=== PATIENT | female | born 1980 | race Caucasian/White ===

== ENCOUNTER 2019-11-25 07:23 | Emergency (ER) | payer BC ==
[2019-11-25 07:33] VITALS: BMI 20.7
[2019-11-25] MEDS ORDERED: ACETAMINOPHEN 1000 MG/100 ML VIAL (NON FORMULARY) IVPB ONE (07:41)
--- NOTE | 2019-11-25 07:45 | PDOC ---
Attending Attestation - Resident Resident Name: AndrewwinstonMichael - ED Attending Attestation I have performed the following: I have examined & evaluated the patient, The case was reviewed & discussed with the resident, I agree w/resident's findings & plan, Exceptions are as noted - HPI HPI: 11/25/19 07:52 39y F hx of hypothyroidism presents with complaint of chest pain for the past several days. The patient notes the pain was gradual onset, located under her left breast and is aching pressure-like in nature. Today as she was going to work she noticed that the pain had worsened and seems to worsen when she takes deep breath.the pain seems to radiate to the back. The patient denies any fever, chills, cough, dyspnea on exertion, shortness of breath, leg swelling, orthopnea. Patient denies any new recent exercises, injuries. She has never had similar pain in the past. Family history: Grandparents had cardiac disease at early age Social hx: social etoh, no smoking/recreatiaonl drug use - Physicial Exam PE: 11/25/19 07:57 Physicial Exam: GENERAL: The patient is awake, alert, and fully oriented, Nontoxic - in no acute distress. HEAD: Normocephalic, atraumatic. EYES: extraocular movements intact, sclera anicteric, conjunctiva clear. ENT: Normal voice, Moist mucous membranes. NECK: Normal range of motion, supple CHEST: No rashes to affected area, mild tenderness of L anterior chest LUNGS: Breath sounds equal, clear to auscultation bilaterally. No wheezes, no rhonchi, no rales. HEART: Regular rate and rhythm, normal S1 and S2 without murmur, rub or gallop. ABDOMEN: Soft, nontender, No guarding, no rebound. No CVA tenderness EXTREMITIES: Normal range of motion, no edema. Neg Homans NEUROLOGICAL: No facial assymetry, Normal speech, PSYCH: Normal mood, normal affect. SKIN: Warm, Dry, normal turgor, - Medical Decision Making 11/25/19 07:57 ddx includes but is not limited to: msk pain, pancreatitis, ptx, consider pna, low suspicion for acs will give tylenol for pain will ck ekg, basic labs, lipase will reasesss 11/25/19 12:57 Pt feeling improved will dc with outpatient fu returns precautions were dsicussed Heart Score/ECG Review - ECG Impressions Comment:: 11/25/19 07:57 Twelve-lead EKG was performed and reviewed by me. There is normal sinus rhythm with a normal rate. Rate of 75 Normal axis No normal R wave progression No ST wave changes suggestive of acute ischemia No prior EKG for comparison Discharge - Discharge Information Problems reviewed: Yes Clinical Impression/Diagnosis: Chest pain Qualifiers: Chest pain type: unspecified Qualified Code(s): R07.9 - Chest pain, unspecified Condition: Stable Disposition: HOME - Admission No - Follow up/Referral Referrals: Franco Quezada [Primary Care Provider] - - Patient Discharge Instructions Patient Printed Discharge Instructions: DI for Atypical Chest Pain Additional Instructions: Today you were seen for chest pain. Your labs are all normal. Your X-ray shows no broken bones or pneumonia. You are not having a heart attack or have any other disease that needs emergency treatment. Options for why you are having this pain include: 1. you have a chest muscle injury or bruising, and this can be treated with rest and Tylenol or Motrin as needed 2. you have a cartilage irritation called costochondritis, which can be treated with rest and Tylenol or Motrin as needed 3. you are about to get shingles, which looks like a lot of painful blisters in that region, and if this happens, please see a doctor for further care At home, see your regular doctor for further care. Take Tylenol or Motrin as needed for pain. If you experience new, different chest pain, difficulty breathing, vomiting, fever, or any other new or concerning symptoms, please return to the emergency room. Thanks again for being a teacher! - Post Discharge Activity Work/Back to School Note: Back to Work
[2019-11-25] MEDS ORDERED: ACETAMINOPHEN INJECTION 100 ML IVPB ONE (07:52)
--- NOTE | 2019-11-25 07:53 | PDOC ---
History of Present Illness - General Chief Complaint: Chest Pain Stated Complaint: CHEST PAIN SOB Time Seen by Provider: 11/25/19 07:44 History Source: Patient Exam Limitations: No Limitations - History of Present Illness Initial Comments: 11/25/19 07:52 Keely Smith is a 39F with PMH hypothyroidism presenting with left chest pain. Has had 3 days of dull rib pain below her left breast, no recent injury. Today has sharp pain under left breast, worse with inspiration, deeper, with deep breathing will jump from sudden pain. Denies F/C, N/V, abd pain, urinary sx, dizziness, VICTOR, coughing. No thoracic surgery or injury. No cardiac history. No recent travel, sick contacts, history of clots, DVT, or hormone use. 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 Had chickenpox as a child. No obvious rash or bruise to chest. Denies alcohol/drugs/tobacco use. PSH . Meds: Synthroid Past History - Medical History Allergies/Adverse Reactions: Allergies Allergy/AdvReac Type Severity Reaction Status Date / Time No Known Allergies Allergy Verified 11/25/19 07:27 COPD: No Seizures: Yes (hypo) - Reproductive History Is Patient Now?: No - Psycho-Social/Smoking History Smoking History: Never smoked Have you smoked in the past 12 months: No - Substance Abuse Hx (Audit-C & DAST Scrn) How often the patient has a drink containing alcohol: Monthly or less Number of drinks the patient has on a typical day: 1 or 2 How often the patient has six or more drinks on one occasion: Never Score: In Men: 4 or > Positive; In Women: 3 or > Positive: 1 Screen Result (Pos requires Nsg. Audit-10AR): Negative In the last yr the pt used illegal drug/Rx for NonMed reason: No Score: Yes response is considered Positive: 0 Screen Result (Positive result requires Nsg. DAST-10): Negative Review of Systems - Review of Systems Able to Perform ROS?: Yes Constitutional: No: Symptoms Reported HEENTM: No: Symptoms Reported Respiratory: Yes: Shortness of Breath. No: Cough, Orthopnea Cardiac (ROS): Yes: Chest Pain ABD/GI: No: Symptoms Reported : No: Symptoms Reported Musculoskeletal: No: Symptoms Reported Integumentary: No: Symptoms Reported Neurological: No: Symptoms reported Endocrine: No: Symptoms Reported Hematologic/Lymphatic: No: Symptoms Reported All Other Systems: Reviewed and Negative *Physical Exam - Vital Signs Last Vital Signs Temp Pulse Resp BP Pulse Ox 98 F 88 22 H 119/70 100 11/25/19 07:27 11/25/19 07:27 11/25/19 07:27 11/25/19 07:27 11/25/19 07:27 - Physical Exam General Appearance: Yes: Nourished, Appropriately Dressed, Thin, Other (resting in bed in NAD, jumps and sharply inhales with deel inhalation). No: Apparent Distress HEENT: positive: EOMI, ISH, Normal Voice, Symmetrical, Pharynx Normal, Hearing Grossly Normal. negative: Scleral Icterus (R), Scleral Icterus (L), Pharyngeal Erythema, Tonsillar Exudate, Tonsillar Erythema Neck: positive: Trachea midline, Normal Thyroid, Supple. negative: Tender, Rigid, Carotid bruit, Lymphadenopathy (R), Lymphadenopathy (L), Tender lateral, Tender midline Respiratory/Chest: positive: Lungs Clear, Normal Breath Sounds, Respiratory Distress (only with deep breathing), Other (chest non-tender). negative: Chest Tender, Accessory Muscle Use, Labored Respiration, Decreased Breath Sounds, Paradoxal Breathing, Crackles, Rales, Rhonchi, Stridor, Wheezing Cardiovascular: positive: Regular Rhythm, Regular Rate. negative: Murmur, Tachycardia Gastrointestinal/Abdominal: positive: Normal Bowel Sounds, Flat, Soft. negative : Tender, Organomegaly, Pulsatile Mass, Guarding, Rebound, Hernia, Hepatomegaly Musculoskeletal: positive: Normal Inspection. negative: CVA Tenderness, Decreased Range of Motion, Vertebral Tenderness Extremity: positive: Normal Capillary Refill, Normal Inspection, Normal Range of Motion, Pelvis Stable. negative: Tender Integumentary: positive: Normal Color, Dry, Warm, Other (scattered erythematous macules to left chest under breast, no bruising) Neurologic: positive: Fully Oriented, Alert, Normal Mood/Affect, Normal Response ED Treatment Course - LABORATORY CBC & Chemistry Diagram: 11/25/19 07:47 11/25/19 07:47 Medical Decision Making - Medical Decision Making 11/25/19 07:53 Patient presents with new onset left chest pain under left breast affecting breathing, no cardiac or pulmonary history, non-tender. VSS. By PERC criteria low suspicion of PE. No cardiac risk factors. Ddx includes PNA, ACS, costochondritis, rib fracture, possibly early onset shingles given PMH chickenpox. CMP/CBC/CP/lipase/ test/ECG/CXR ECG NSR with HR 75, QTc 464, no MATY/D, nonspecific TWI to V2. 11/25/19 08:52 Labs reviewed and unremarkable for pathology. 11/25/19 09:34 CXR unremarkable. No acute pathology noted, possible costochondritis vs. shingles vs. muscle injury. No emergent need for treatment. Can d/c home with PMD f/u. Discharge - Discharge Information Problems reviewed: Yes Clinical Impression/Diagnosis: Chest pain Qualifiers: Chest pain type: unspecified Qualified Code(s): R07.9 - Chest pain, unspecified Condition: Stable Disposition: HOME - Follow up/Referral Referrals: Franco Quezada [Primary Care Provider] - - Patient Discharge Instructions Patient Printed Discharge Instructions: DI for Atypical Chest Pain Additional Instructions: Today you were seen for chest pain. Your labs are all normal. Your X-ray shows no broken bones or pneumonia. You are not having a heart attack or have any other disease that needs emergency treatment. Options for why you are having this pain include: 1. you have a chest muscle injury or bruising, and this can be treated with rest and Tylenol or Motrin as needed 2. you have a cartilage irritation called costochondritis, which can be treated with rest and Tylenol or Motrin as needed 3. you are about to get shingles, which looks like a lot of painful blisters in that region, and if this happens, please see a doctor for further care At home, see your regular doctor for further care. Take Tylenol or Motrin as needed for pain. If you experience new, different chest pain, difficulty breathing, vomiting, fever, or any other new or concerning symptoms, please return to the emergency room. Thanks again for being a teacher! - Post Discharge Activity Work/Back to School Note: Back to Work
[2019-11-25 08:14] LABS: BASO % 1.3 % (0-2.0); EOS % 3.7 % (0-4.5); HEMATOCRIT 39.6 % (32.4-45.2); HEMOGLOBIN 13.4 GM/dL (10.7-15.3); LYMPH % 22.6 % (8-40); MCH 30.5 pg (25.7-33.7); MCHC 33.9 g/dl (32.0-36.0); MEAN CELL VOLUME 89.9 fl (80-96); MEAN PLT VOLUME 8.5 fl (7.5-11.1); MONO % 9.5 % (3.8-10.2); NEUT % 62.9 % (42.8-82.8); PLATELET COUNT 163 K/MM3 (134-434); RBC 4.41 M/mm3 (3.60-5.2); RDW 13.1 % (11.6-15.6); WHITE BLOOD COUNT 6.1 K/mm3 (4.0-10.0)
[2019-11-25 08:47] LABS: ALK PHOS 75 U/L (45-117); ANION GAP 4 MMOL/L (8-16); BILIRUBIN,TOTAL 0.5 mg/dL (0.2-1); BLOOD UREA NITROGEN 13.5 mg/dL (7-18); CALCIUM 8.6 mg/dL (8.5-10.1); CHLORIDE 105 mmol/L (98-107); CO2 29 mmol/L (21-32); CREATININE 0.8 mg/dL (0.55-1.3); GLUCOSE,RANDOM 92 mg/dL (74-106); LIPASE 78 U/L (73-393); SGOT/AST 18 U/L (15-37); SGPT/ALT 21 U/L (13-61); SODIUM 139 mmol/L (136-145); TOT PROT 7.1 g/dl (6.4-8.2)
--- OUTSIDE RECORDS SUMMARY | 2019-11-25 09:06 | XMS ---
:1980 Author Organization [facility] Support Name Relationship Address Phone YPS Unavailable [address] [place] [address] SUNG CARRILLO [address] [place] [address] Re-disclosure Warning The records that you are about to access may contain information from federally- assisted alcohol or drug abuse programs. If such information is present, then the following federally mandated warning applies: This information has been disclosed to you from records protected by federal confidentiality rules (42 CFR part 2). The federal rules prohibit you from making any further disclosure of this information unless further disclosure is expressly permitted by the written consent of the person to whom it pertains or as otherwise permitted by 42 CFR part 2. A general authorization for the release of medical or other information is NOT sufficient for this purpose. The Federal rules restrict any use of the information to criminally investigate or prosecute any alcohol or drug abuse patient.The records that you are about to access may contain highly sensitive health information, the redisclosure of which is protected by Article 27-F of the [facility] Public Health law. If you continue you may haveaccess to information: Regarding HIV / AIDS; Provided by facilities licensed or operated by the [facility] Office of Mental Health; or Provided by the [facility] Office for People With Developmental Disabilities. If such information is present, then the following [facility] mandated warning applies: This information has been disclosed to you from confidential records which are protected by state law. State law prohibits you from making any further disclosure of this information without the specific written consent of the person to whom it pertains, or as otherwise permitted by law. Any unauthorized further disclosure in violation of state law may result in a fine or custodial sentence or both. A general authorization for the release of medical or other information is NOT sufficient authorization for further disclosure. Insurance Providers Payer name Policy type Policy ID Covered Covered libertarian's Policy P samantha / Coverage libertarian ID relationship to Rm Inf ormation type rm BC PPO [id number] SP [id number] EMPIRE [id number] PLAN ([facility] ) Surgeries/Procedures Procedure Description Date Indications Data Source(s) Documentation of current 11/07/2019 MED GEN ([facility] (procedure) 12:00:00 AM EDT edical Service) Results ID Date Data Source [id number] 11/15/2019 09:13:00 AM EDT [facility] Name Value Range Interpretation Description Data Sup porting Code Source(s) Document(s ) 2019 Novel [facility] Coronavirus RNA Interpretation Unspecified Specimen Qualitative NINA Probe Detection This lab was ordered by [facility] and reported by [facility]. ID Date Data Source [id number] 11/07/2019 11:46:00 AM EDT [facility] Name Value Range Interpretation Code Description Data Verena rce(s) Supporting Document(s ) SARS-CoV-2 [facility] PCR This lab was ordered by [facility] and reported by [facility]. Procedure Social History Code Duration Value Status Description Data Source(s ) Smoking 11/07/2019 Unknown if ever completed Unknown if ever MEDG EN ([facility] 12:00:00 AM EDT smoked smoked Medical S ervice) Smoking 11/07/2019 g3 2 kids completed g3 2 kids MEDGEN ([facility] 12:00:00 AM EDT Medical S ervice) Vital Signs ID Date Data Source UNK Name Value Range Interpretation Code Description Data Source(s) Body height 66 in 66 in [facility] ([facility]) Body weight 120 lb 120 lb [facility] ([facility]) Body mass index 19.4 kg/m2 19.4 kg/m2 MED[facility] ([address] (BMI) [Ratio] Medical Ser vice)
[2019-11-25 09:50] VITALS: BP 112/76; PULSE 65; TEMP 97.9
--- NOTE | 2019-11-25 10:30 | EKG ---
Test Reason : Blood Pressure : / mmHG Vent. Rate : 075 BPM Atrial Rate : 075 BPM P-R Int : 152 ms QRS Dur : 072 ms QT Int : 416 ms P-R-T Axes : 066 073 054 degrees QTc Int : 464 ms NORMAL SINUS RHYTHM POSSIBLE LEFT ATRIAL ENLARGEMENT CANNOT RULE OUT SEPTAL INFARCT , AGE UNDETERMINED ABNORMAL ECG NO PREVIOUS ECGS AVAILABLE Confirmed by ISHMAEL MOE MD ([id number]) on 11/25/2019 10:29:37 AM Referred By: Confirmed By:ISHMAEL MOE MD
== END 2019-11-25 10:06 | disposition home or self-care (01) ==
LOC: JER 07:23
PROC: 3E033NZ Introduction of Analgesics, Hypnotics, Sedatives into Peripheral Vein, Percutaneous Approach (ICD-10-PCS; principal; 2019-11-25)
DX: R07.9 Chest pain, unspecified (principal)
CPT/HCPCS: 36415; 71046-TC-FY; 80053; 82550; 83690; 84484; 84703; 85025; 93005; 93010; 99285-25; J0131